=== PATIENT | female | born 1990 | race Caucasian/White ===

== ENCOUNTER → 2024-08-13 | Outpatient (CLI) | payer OTHER, MEDICAID, SELFPAY ==
[2024-08-13 11:51] LABS: Glucose 1/2 Hour 109 mg/dL (110-170)
[2024-08-13 11:51] LABS: Glucose, Fasting 85 mg/dL (74-106)
[2024-08-13 12:13] LABS: Glucose 1 Hour 112 mg/dL (120-170)
[2024-08-13 13:39] LABS: Glucose 2 Hour 101 mg/dL (70-120)
[2024-08-13 14:57] LABS: Glucose 3 Hour 60 mg/dL (70-120)
[2024-08-13 16:47] LABS: Glucose 4 Hour 71 mg/dL (70-120)
[2024-08-16 06:56] LABS: C-Peptide* 1.81 ng/mL (0.80-3.85); Insulin* 9.4 uIU/mL (< OR = 18.4)
== END | disposition home or self-care (01) ==
PROVIDERS: PCP Registered Nurse; Referring Provider Registered Nurse; Visit Provider Registered Nurse
DX: E16.2 Hypoglycemia, unspecified (principal)
CPT/HCPCS: 36415; 82951; 82952; 83525; 84681

== ENCOUNTER → 2024-11-01 | Outpatient (CLI) | payer OTHER, MEDICAID, SELFPAY ==
[2024-11-01 10:52] LABS: Free T4 (Free Thyroxine) 1.17 ng/dL (0.89-1.76); Thyroid Stimulating Hormone 1.34 uIU/mL (0.55-4.78)
== END | disposition home or self-care (01) ==
LOC: COPL 09:15
PROVIDERS: PCP Registered Nurse; Referring Provider Registered Nurse; Visit Provider Registered Nurse
DX: E03.9 Hypothyroidism, unspecified (principal)
CPT/HCPCS: 36415; 84439; 84443

== ENCOUNTER → 2025-01-01 | Outpatient (CLI) | payer OTHER, MEDICAID, SELFPAY ==
--- NOTE | 2025-01-01 12:00 | XR_ITS ---
Examination: CT brain head without contrast. 2-D sagittal coronal reconstructions Date and time of exam:January 01, 2025 1143 hours INDICATIONS: Patient fell 10 days ago with injury to the head, persistent head pain CTDI: vol (mGy):51.7 DLP: (mGycm): 1069 Technique: Multiple CT axial sections of the brain have been obtained, 5 mm slice thickness. Contrast has not been administered. 2-D sagittal, coronal reconstructions have been obtained Low dose protocols were performed. One or more of the following dose reduction techniques were used; automated exposure control, adjustment of the mA and/or KV according to patient size, use of iterative reconstruction technique. Findings: No significant ventricular enlargement. Intra-axial or extra-axial hemorrhage density is not seen. No mass effect or midline shift Basal cisterns are not remarkable. Fourth ventricle is midline. Cranial vault intact. Impression: Negative for acute hemorrhage, mass effect or midline shift Advise clinical correlation follow-up accordingly
== END | disposition home or self-care (01) ==
PROVIDERS: Referring Provider Registered Nurse; Visit Provider Registered Nurse
DX: R51.9 Headache, unspecified (principal)
CPT/HCPCS: 70450

== ENCOUNTER → 2025-01-02 | Outpatient (CLI) | payer OTHER, MEDICAID, SELFPAY ==
[2025-01-02 17:13] LABS: Hepatitis B Surface Antigen Non Reactive (Non React)
[2025-01-02 17:16] LABS: Syphilis Nonreactive (Nonreactive)
[2025-01-03 08:37] LABS: BVAG Candida Negative (Negative); Bacterial Vaginosis Markers Negative (Negative); Candida glabrata Negative (Negative); Candida krusei PCR Negative (Negative); Trichomonas Negative (Negative)
== END | disposition home or self-care (01) ==
LOC: SLDO 14:46
PROVIDERS: Referring Provider Physician Assistant Medical; Visit Provider Physician Assistant Medical
DX: R32 Unspecified urinary incontinence (principal); B37.89 Other sites of candidiasis; N76.0 Acute vaginitis; A59.01 Trichomonal vulvovaginitis; Z11.3 Encounter for screening for infections with a predominantly sexual mode of transmission
CPT/HCPCS: 36415; 81514; 86780; 87086; 87340; 87389; 87522

== ENCOUNTER → 2025-01-24 | Outpatient (CLI) | payer OTHER, MEDICAID, SELFPAY | END | disposition home or self-care (01) | PROVIDERS: Referring Provider Physician Assistant Medical; Visit Provider Physician Assistant Medical | DX: R32 Unspecified urinary incontinence (principal) | CPT/HCPCS: 87086 ==

== ENCOUNTER → 2025-04-10 | Outpatient (CLI) | payer OTHER, MEDICAID, SELFPAY ==
[2025-04-10 15:46] LABS: Collection Type, Urine Clean Catch
[2025-04-10 16:32] LABS: Basophils # (Auto) 0.0 Thou/mm3 (0.0-0.2); Basophils % (Auto) 1 % (0-2.5); Eosinophils # (Auto) 0.0 Thou/mm3 (0.0-0.5); Eosinophils % (Auto) 1 % (0-10); Hematocrit 40.8 % (36.0-46.0); Hemoglobin 13.6 g/dL (12.0-16.0); Immature Granulocytes Auto 0.01 Thou/mm3 (0.00-0.00); Lymphocytes # (Auto) 1.5 Thou/mm3 (1.0-4.8); Lymphocytes % (Auto) 30 % (10-50); Mean Corpuscular HGB Conc 33.3 g/dl (31.0-37.0); Mean Corpuscular Hemoglobin 30.2 pg (25.0-35.0); Mean Corpuscular Volume 91 fL (80-100); Monocytes # (Auto) 0.5 Thou/mm3 (0.0-0.8); Monocytes % (Auto) 10 % (0-12); Neutrophils # (Auto) 3.0 Thou/mm3 (1.8-7.7); Neutrophils % (Auto) 59 % (37-80); Nucleated Red Blood Cell # 0.00 Thou/mm3 (0.00-0.00); Nucleated Red Blood Cell % 0 /100 WBC (0); Platelet Count 322 Thou/mm3 (140-440); RDW Standard Deviation 46.0 fL (36.4-46.3); Red Blood Count 4.50 Miln/mm3 (4.00-5.20); White Blood Count 5.1 Thou/mm3 (3.6-11.0)
[2025-04-10 16:39] LABS: HCG Titer if Positive Negative
[2025-04-10 16:42] LABS: Glucose Estimated Average 94 mg/dL (80-131); Hemoglobin A1C 4.9 % Hgb (4.8-6.0)
[2025-04-10 16:50] LABS: Vitamin B12 707 pg/mL (211-911); Vitamin D 25 Hydroxy Total 30.9 ng/mL (7.3-40.2)
[2025-04-10 16:51] LABS: Alanine Aminotransferase 23 U/L (10-49); Albumin, Serum 4.4 gm/dL (3.5-5.0); Albumin/Globulin Ratio 1.8 (1.2-2.2); Alkaline Phosphatase 73 U/L (46-116); Anion Gap 10 (7-16); Aspartate Amino Transferase 24 U/L (0-34); BUN/Creatinine Ratio 8 Ratio (12-20); Bilirubin,Total 0.5 mg/dL (0.3-1.2); Blood Urea Nitrogen 8 mg/dL (9-23); Calcium 9.2 mg/dL (8.3-10.6); Calcium (Corrected) 9.2 mg/dL (8.5-10.1); Carbon Dioxide 27.5 mMol/L (20.0-31.0); Cardiac Risk Estimate 4.3 RATIO (3.7-5.6); Chloride 106 mMol/L (98-107); Cholesterol 179 mg/dL (132-200); Creatinine (Component) 1.0 mg/dL (0.6-1.3); Globulin 2.5 gm/dL (2.3-3.5); Glucose 85 mg/dL (74-106); HDL Cholesterol 42 mg/dL (40-60); LDL Cholesterol,Calculated 109 mg/dL (0-130); Osmolality,Calculated 282 (275-295); Potassium 3.8 mMol/L (3.4-5.1); Sodium 143 mMol/L (136-145); Thyroid Stimulating Hormone 0.59 uIU/mL (0.55-4.78); Total Protein 6.9 gm/dL (5.7-8.2); Triglycerides 138 mg/dL (30-150); eGFR > 60 See Note
[2025-04-10 17:24] LABS: Bacteria,Urine Rare; Bilirubin,Urine Negative (Negative); Blood,Urine Negative (Negative); Clarity,Urine Clear (Clear/Hazy); Color,Urine Yellow (Lt Yel-Yel); Culture Indicated,Urine Not Indicated; Glucose, Urine Negative (Negative); Ketones,Urine Negative (Negative); Leukocyte Esterase,Urine Positive (Negative); Nitrite,Urine Negative (Negative); PH,Urine 6.0 (5.0-7.0); Protein,Urine Trace (Neg - Trace); RBC,Urine 2 /hpf (0-3); Specific Gravity,Urine 1.035 (1.001-1.035); Squamous Epithelial Cell,Urine 3 /hpf (0-5); Urobilinogen,Urine Negative mg/dL (0.0-1.0); WBC,Urine 3 /hpf (0-5)
== END | disposition home or self-care (01) ==
LOC: COPL 15:02
PROVIDERS: PCP Family Medicine; Referring Provider Family Medicine; Visit Provider Family Medicine
DX: N91.2 Amenorrhea, unspecified (principal); R53.82 Chronic fatigue, unspecified; R79.89 Other specified abnormal findings of blood chemistry
CPT/HCPCS: 36415; 80053; 80061; 81001; 82306; 82607; 83036; 84443; 84703; 85025

== ENCOUNTER → 2025-04-16 | Outpatient (CLI) | payer OTHER, MEDICAID, SELFPAY ==
[2025-04-16 14:47] LABS: Basophils # (Auto) 0.0 Thou/mm3 (0.0-0.2); Basophils % (Auto) 1 % (0-2.5); Eosinophils # (Auto) 0.0 Thou/mm3 (0.0-0.5); Eosinophils % (Auto) 0 % (0-10); Hematocrit 41.6 % (36.0-46.0); Hemoglobin 14.1 g/dL (12.0-16.0); Immature Granulocytes Auto 0.01 Thou/mm3 (0.00-0.00); Lymphocytes # (Auto) 1.6 Thou/mm3 (1.0-4.8); Lymphocytes % (Auto) 24 % (10-50); Mean Corpuscular HGB Conc 33.9 g/dl (31.0-37.0); Mean Corpuscular Hemoglobin 30.7 pg (25.0-35.0); Mean Corpuscular Volume 91 fL (80-100); Monocytes # (Auto) 0.5 Thou/mm3 (0.0-0.8); Monocytes % (Auto) 7 % (0-12); Neutrophils # (Auto) 4.5 Thou/mm3 (1.8-7.7); Neutrophils % (Auto) 68 % (37-80); Nucleated Red Blood Cell # 0.00 Thou/mm3 (0.00-0.00); Nucleated Red Blood Cell % 0 /100 WBC (0); Platelet Count 330 Thou/mm3 (140-440); RDW Standard Deviation 45.6 fL (36.4-46.3); Red Blood Count 4.59 Miln/mm3 (4.00-5.20); White Blood Count 6.7 Thou/mm3 (3.6-11.0)
[2025-04-16 14:58] LABS: Glucose Estimated Average 91 mg/dL (80-131); Hemoglobin A1C 4.8 % Hgb (4.8-6.0)
[2025-04-16 15:02] LABS: Follicle Stimulating Hormone 5.59 mIU/mL (See Note)
[2025-04-16 15:05] LABS: Alanine Aminotransferase 19 U/L (10-49); Albumin, Serum 4.5 gm/dL (3.5-5.0); Albumin/Globulin Ratio 1.8 (1.2-2.2); Alkaline Phosphatase 76 U/L (46-116); Anion Gap 10 (7-16); Aspartate Amino Transferase 20 U/L (0-34); BUN/Creatinine Ratio 11 Ratio (12-20); Beta HCG,Quantitative < 1 mIU/mL (<5.0); Bilirubin,Total 0.8 mg/dL (0.3-1.2); Blood Urea Nitrogen 10 mg/dL (9-23); Calcium 9.2 mg/dL (8.3-10.6); Calcium (Corrected) 9.2 mg/dL (8.5-10.1); Carbon Dioxide 24.8 mMol/L (20.0-31.0); Chloride 106 mMol/L (98-107); Creatinine (Component) 0.9 mg/dL (0.6-1.3); Free T4 (Free Thyroxine) 1.43 ng/dL (0.89-1.76); Globulin 2.5 gm/dL (2.3-3.5); Glucose 79 mg/dL (74-106); Osmolality,Calculated 279 (275-295); Potassium 3.4 mMol/L (3.4-5.1); Sodium 141 mMol/L (136-145); Thyroid Stimulating Hormone 1.33 uIU/mL (0.55-4.78); Total Protein 7.0 gm/dL (5.7-8.2); eGFR > 60 See Note
[2025-04-17 10:39] LABS: BVAG Candida Negative (Negative); Bacterial Vaginosis Markers Negative (Negative); Candida glabrata Negative (Negative); Candida krusei PCR Negative (Negative); Trichomonas Negative (Negative)
[2025-04-30 06:26] LABS: DHEA Sulfate* 163 mcg/dL (23-266); Estrogen, Total, Serum* 1004 pg/mL; Luteinizing Hormone* 5.1 mIU/mL; Progesterone,LC/MS* 0.2 ng/mL; Prolactin* 8.1 ng/mL; Testosterone, Free,Dialysis 1.5 pg/mL (0.1-6.4); Testosterone, Total, Dialysis 26 ng/dL (2-45)
== END | disposition home or self-care (01) ==
PROVIDERS: PCP Registered Nurse; Referring Provider Specialist; Visit Provider Specialist
DX: N93.9 Abnormal uterine and vaginal bleeding, unspecified (principal); B37.89 Other sites of candidiasis; N76.0 Acute vaginitis; A59.01 Trichomonal vulvovaginitis
CPT/HCPCS: 36415; 80053; 81514; 82627; 82672; 83001; 83002; 83036; 84144; 84146; 84402; 84403; 84439; 84443; 84702; 85025

== ENCOUNTER 2025-04-26 20:54 | Emergency (ER) | payer OTHER, MEDICAID, SELFPAY ==
[2025-04-26 20:54] VITALS: BMI 23.9
[2025-04-26 21:54] VITALS: BP 127/85; PULSE 96; RESP 16; TEMP 36.7; O2SAT 99
--- NOTE | 2025-04-26 23:42 | XR_ITS ---
Examination: CT abdomen with intravenous contrast CT pelvis with intravenous contrast 2-D coronal reconstructions 2-D sagittal reconstructions Date and time of exam:April 27, 2025, 0116 hours, comparison July 06, 2016. INDICATIONS: Right lower abdominal pain beginning 4 days ago CTDI: vol (mGy) 6.57 DLP: (mGycm) 367 Technique: Multiple axial sections of the abdomen and pelvis have been obtained. 64 slice high-resolution scanner used. 3 mm axial sections have been obtained, post intravenous injection of 60 cc Isovue 370 2-D sagittal, coronal reconstructions obtained. Low dose protocols were performed. One or more of the following dose reduction techniques were used; automated exposure control, adjustment of the mA and/or KV according to patient size, use of iterative reconstruction technique. Findings: No focal liver or splenic lesions No gallstones No pancreatic mass. No renal or ureteral calculi, no hydronephrosis Aorta normal size No bowel obstruction Normal appendix, retrocecal No diverticulitis Anteverted uterus no pelvic mass Bladder intact, osseous structures intact mild disc narrowing L4-L5 IMPRESSION: Normal appendix No acute process in the abdomen or pelvis
--- NOTE | 2025-04-26 23:43 | PD.EDRME ---
Rapid Medical Screening Exam RME Arrival date/time: 04/26/25 20:54 35F with history of hypothyroidism presents to ED with 4 days of worsening RLQ pain and N/V. Patient is currently on her period. Chief Complaint: Abdominal Pain Vital signs: Vital Signs Temperature 98.1 F 04/26/25 21:54 Pulse Rate 96 04/26/25 21:54 Respiratory Rate 16 04/26/25 21:54 Blood Pressure 127/85 H 04/26/25 21:54 Pulse Oximetry (%) 99 04/26/25 21:54 Oxygen Delivery Method Room Air 04/26/25 21:54
--- NOTE | 2025-04-27 | XR_ITS ---
Examination: Pelvic ultrasound, transabdominal, complete Technique: Transabdominal ultrasound of the pelvis performed using grayscale imaging Date and time of exam: April 27, 2025, 0040 hours INDICATIONS: Right lower abdominal pelvic pain with nausea beginning 4 days ago. FINDINGS: Uterus 6.9 x 2.8 x 4.7 cm, endometrial stripe 0.3 cm No uterine mass or intrauterine gestation. Ovaries obscured by bowel gas IMPRESSION: No uterine mass or intrauterine gestation
[2025-04-27 01:00] LABS: Basophils # (Auto) 0.0 Thou/mm3 (0.0-0.2); Basophils % (Auto) 0 % (0-2.5); Eosinophils # (Auto) 0.0 Thou/mm3 (0.0-0.5); Eosinophils % (Auto) 0 % (0-10); Hematocrit 43.9 % (36.0-46.0); Hemoglobin 14.6 g/dL (12.0-16.0); Immature Granulocytes Auto 0.01 Thou/mm3 (0.00-0.00); Lymphocytes # (Auto) 2.4 Thou/mm3 (1.0-4.8); Lymphocytes % (Auto) 32 % (10-50); Mean Corpuscular HGB Conc 33.3 g/dl (31.0-37.0); Mean Corpuscular Hemoglobin 30.4 pg (25.0-35.0); Mean Corpuscular Volume 91 fL (80-100); Monocytes # (Auto) 0.5 Thou/mm3 (0.0-0.8); Monocytes % (Auto) 6 % (0-12); Neutrophils # (Auto) 4.7 Thou/mm3 (1.8-7.7); Neutrophils % (Auto) 61 % (37-80); Nucleated Red Blood Cell # 0.00 Thou/mm3 (0.00-0.00); Nucleated Red Blood Cell % 0 /100 WBC (0); Platelet Count 343 Thou/mm3 (140-440); RDW Standard Deviation 45.8 fL (36.4-46.3); Red Blood Count 4.81 Miln/mm3 (4.00-5.20); White Blood Count 7.7 Thou/mm3 (3.6-11.0)
[2025-04-27 01:22] LABS: Alanine Aminotransferase 16 U/L (10-49); Albumin, Serum 4.9 gm/dL (3.5-5.0); Albumin/Globulin Ratio 1.6 (1.2-2.2); Alkaline Phosphatase 70 U/L (46-116); Anion Gap 14 (7-16); Aspartate Amino Transferase 14 U/L (0-34); BUN/Creatinine Ratio 7 Ratio (12-20); Bilirubin,Total 0.6 mg/dL (0.3-1.2); Blood Urea Nitrogen 6 mg/dL (9-23); Calcium 9.8 mg/dL (8.3-10.6); Calcium (Corrected) 9.8 mg/dL (8.5-10.1); Carbon Dioxide 24.1 mMol/L (20.0-31.0); Chloride 105 mMol/L (98-107); Creatinine (Component) 0.9 mg/dL (0.6-1.3); Estimated Creatinine Clearance 84.8 mL/min (>60); Globulin 3.1 gm/dL (2.3-3.5); Glucose 78 mg/dL (74-106); Lipase 34 U/L (12-53); Osmolality,Calculated 281 (275-295); Potassium 3.3 mMol/L (3.4-5.1); Sodium 143 mMol/L (136-145); Total Protein 8.0 gm/dL (5.7-8.2); eGFR > 60 See Note
--- NOTE | 2025-04-27 02:14 | PRELIM_ITS ---
Pelvic ultrasound (transabdominal). April 27, 2025 at 0040 hours Clinical history: Right lower quadrant/pelvic pain. LMP: 04/25/2025. Technique: Real-time, grayscale, transabdominal pelvic ultrasound was performed using Duplex scanning including arterial inflow, venous outflow, color and spectral Doppler. Comparison: No prior study is available for comparison. Findings: The uterus measures 6.9 x 2.8 x 4.7 cm and is unremarkable. The endometrium is unremarkable and measures 0.3 cm. The ovaries are obscured by bowel gas and are not evaluated on this examination. There is no gross adnexal mass. There is no free fluid on the submitted images. Impression: Grossly unremarkable uterus. Nonvisualized ovaries (obscured by bowel gas). Other findings as described above. Report Electronically Signed By: Roxi Barfield 04/27/2025 2:13:44 AM [EST]
--- NOTE | 2025-04-27 02:14 | PRELIM_ITS ---
CT scan of the abdomen and pelvis with intravenous contrast (axial sections with sagittal, coronal and 3D reformats) April 27, 2025 0116 hours Clinical History: Right lower quadrant pain Comparison: None. Findings: The lung bases are clear. Fatty infiltration of the liver is noted. No evidence of calcified gallstones. There is right renal parenchymal scarring. The pancreas, spleen, left kidney and adrenals are unremarkable. No evidence of bowel obstruction. The appendix is within normal limits (images [id number]). There is no mesenteric or retroperitoneal adenopathy. The urinary bladder is unremarkable. The uterus is unremarkable. There is no free fluid, free air or abscess. The osseous structures are unremarkable. Impression: No evidence of appendicitis or other acute intra-abdominal/pelvic pathology. Other findings as described above. Report Electronically Signed By: Roxi Barfield 04/27/2025 2:13:23 AM [EST]
[2025-04-27 02:45] VITALS: BP 122/92; PULSE 80; RESP 18; TEMP 36.6; O2SAT 100
--- NOTE | 2025-04-27 03:15 | PD.EDABDPN ---
ED Abdominal Pain RME/HPI General Chief Complaint: Abdominal Pain Stated complaint: RIGHT LOWER ABDOMINAL PAIN Arrival date/time: 04/26/25 20:54 RME / HPI RME / HPI narrative: 04/26/25 20:54 35F with history of hypothyroidism presents to ED with 4 days of worsening RLQ pain and N/V. Patient is currently on her period. DR. VILLANUEVA MAIN ED EVALUATION: 35 yo female with Hx of presents to ED c/o RLQ abdominal pain, nausea, and vomiting x 4 days. Denies dysuria. No other concerns or complaints expressed at this time. Related Data Home Medications ?Medication ?Instructions ?Recorded ?Confirmed budesonide-formoterol HFA 160 2 puff inhalation BID 05/23/23 05/23/23 mcg-4.5 mcg/actuation aerosol inhaler (Symbicort) folic acid 1 mg tablet 1 mg PO DAILY 05/23/23 05/23/23 ibuprofen 800 mg tablet 800 mg PO Q8HR PRN Pain 05/23/23 05/23/23 levothyroxine 25 mcg tablet 25 mcg PO DAILY 05/23/23 05/23/23 loratadine 10 mg tablet 10 mg PO DAILY 05/23/23 05/23/23 meloxicam 15 mg tablet 15 mg PO DAILY PRN Pain 05/23/23 05/23/23 omeprazole 20 mg capsule,delayed 20 mg PO DAILY 05/23/23 05/23/23 release phentermine 15 mg capsule 37.5 mg PO DAILY 05/23/23 05/23/23 Previous Rx's ?Medication ?Instructions ?Recorded albuterol sulfate 90 mcg/actuation 2 puff inhalation QID #18 grams 03/07/21 aerosol inhaler Allergies Allergy/AdvReac Type Severity Reaction Status Date / Time adhesive tape Allergy Verified 03/06/21 23:25 Review of Systems Review of Systems Systems Reviewed: All systems reviewed, normal except as documented Past Medical History Past Medical History RESPIRATORY: Positive Respiratory Disorders and Asthma GASTROINTESTINAL: Positive Gastrointestinal Disorders and Gastroesophageal Reflux Disease GENITOURINARY: Positive Genitourinary Disorders (RIGHT KIDNEY CYST) MUSCULOSKELETAL: Positive Musculoskeletal Disorders, Arthritis (RIGHT KNEE), Scoliosis and Carpal Tunnel Syndrome (BILATERAL) ENDOCRINE: Positive Hypothyroidism PSYCHO/SOCIAL: Positive Depression and Anxiety OTHER HISTORY: Positive Chicken Pox ED Exam Narrative Physical exam: Generally patient is alert and oriented x 3 in no obvious distress, heart is regular rate and rhythm, lungs clear to auscultation equal bilaterally, abdomen soft bowel sounds present nondistended right lower quadrant abdominal tenderness without rebound. Musculoskeletal exam showed no costovertebral angle tenderness. Skin is warm pale and dry. Neurologic exam no focal motor or sensory deficits cranial nerves II through XII grossly intact Course Quality Measures none Orders Category Date Time Status CT Screening NOW Care 04/26/25 23:43 Active Insert IV NOW Care 04/26/25 23:[address] abdomen pelvis w con Stat Exams 04/26/25 23:42 Taken US pelvic complete Stat Exams 04/27/25 00:00 Taken CBC Stat Lab 04/26/25 23:42 Completed CMP [Comprehensive Metabolic Panel] Stat Lab 04/26/25 23:42 Completed HCG Qualitative,Urine Stat Lab 04/26/25 23:43 Ordered Lipase Stat Lab 04/26/25 23:42 Completed Urinalysis, C/S if Indicated Stat Lab 04/26/25 23:43 Ordered Vital Signs Vital signs: Vital Signs Temperature 98.1 F 04/26/25 21:54 Pulse Rate 96 04/26/25 21:54 Respiratory Rate 16 04/26/25 21:54 Blood Pressure 127/85 H 04/26/25 21:54 Pulse Oximetry (%) 99 04/26/25 21:54 Oxygen Delivery Method Room Air 04/26/25 21:54 Abdominal Pain MDM MDM Narrative MDM Narrative:: Scribe Attestation: I, Ct Todd am scribing for and in the presence of Dr. Villanueva. Provider Notation: Although this document has been carefully reviewed, there may still be some phonetic and other typographical errors. These errors are purely grammatical due to imperfections in the software program and should not be construed in any way to? compromise the substance of the patient's medical care during this visit. I interpreted all labs. I reviewed all radiographic studies. CT scan done the abdomen and pelvis with IV contrast showed no evidence of acute disease process. Pelvic ultrasound was unremarkable. There was no evidence for appendicitis on the CT scan. There is no fever. No leukocytosis. Patient denies urinary complaints such as dysuria hematuria urgency or frequency. Patient will be discharged in stable condition to take Tylenol and ibuprofen for pain. Follow-up with her doctor. Return to ER as needed or if condition worsens. Patient data External records reviewed:: [facility] previous records (Reviewed prior ED records from 12/31/21. Patient was seen for Acute hip pain.) Clinical information provided by:: patient Social determinants that could affect healthcare access:: none Patient has the following chronic illnesses:: Asthma, Gastroesophageal Reflux Disease, Genitourinary Disorders (RIGHT KIDNEY CYST), Arthritis, Scoliosis,Carpal Tunnel Syndrome, Hypothyroidism, Depression and Anxiety How is presenting disease/condition affected by chronic disease/condition?: exacerbated by Evaluation data The following diagnostics were reviewed and interpreted by me:: other (specify) Lab and/or radiology exams considered but not ordered:: None Interpretation Summary: RADIOLOGY Pelvic US: Findings: The uterus measures 6.9 x 2.8 x 4.7 cm and is unremarkable. The endometrium is unremarkable and measures 0.3 cm. The ovaries are obscured by bowel gas and are not evaluated on this examination. There is no gross adnexal mass. There is no free fluid on the submitted images. Impression: Grossly unremarkable uterus. Nonvisualized ovaries (obscured by bowel gas). Other findings as described above. Abdomen/Pelvis CT: Findings: The uterus measures 6.9 x 2.8 x 4.7 cm and is unremarkable. The endometrium is unremarkable and measures 0.3 cm. The ovaries are obscured by bowel gas and are not evaluated on this examination. There is no gross adnexal mass. There is no free fluid on the submitted images. Impression: Grossly unremarkable uterus. Nonvisualized ovaries (obscured by bowel gas). Other findings as described above. Medications / Prescriptions Medications or Prescriptions considered but not ordered:: None Medication administrations:: See above. Consultations Consultation(s) initiated? (list below): No Diagnosis Differential diagnosis abdominal pain: abdominal pain, acute appendicitis, calculus of kidney, constipation, diverticulitis, endometriosis, gastroenteritis, pancreatitis and small bowel obstruction Most likely diagnosis given after review of the tests above:: None Admission Indicated Admission indicated?: not indicated Explain why admission is indicated or not indicated:: Patient does not meet admission criteria. Admission Request Was there a request for admission?: No Disposition Plan Disposition Plan: Discharge Discharge Attestation Discharge Attestation: The patient and all family members were given an opportunity to ask questions and understood the discharge instructions. Discharge instructions specifically effects, indications for sooner follow up or return to the emergency department, and the expected course of current diagnosis. Patient condition: Stable Discharge Plan Plan Patient Disposition: HOME (Self Care) Prescriptions/Referrals Prescriptions/Med Rec: No Action albuterol sulfate 90 mcg/actuation HFA aerosol inhaler 2 puff inhalation QID Qty: 18 0RF ibuprofen 800 mg tablet 800 mg PO Q8HR PRN (Reason: Pain) Patient Comments: TAKE 1 TABLET BY MOUTH EVERY 8 HOURS NEEDED WITH FOOD OR MILK FOR 30 DAYS meloxicam 15 mg tablet 15 mg PO DAILY PRN (Reason: Pain) Patient Comments: TAKE 1 TABLET BY MOUTH ONCE DAILY phentermine 15 mg capsule 37.5 mg PO DAILY levothyroxine 25 mcg tablet 25 mcg PO DAILY Patient Comments: TAKE 1 TABLET BY MOUTH ONCE DAILY omeprazole 20 mg capsule,delayed release(DR/EC) 20 mg PO DAILY Patient Comments: TAKE 1 CAPSULE BY MOUTH ONCE DAILY 30 MINUTES BEFORE BREAKFAST folic acid 1 mg tablet 1 mg PO DAILY Patient Comments: TAKE 1 TABLET BY MOUTH ONCE DAILY loratadine 10 mg Tablet 10 mg PO DAILY budesonide-formoterol [Symbicort] 160-4.5 mcg/actuation Hfa Aerosol Inhaler 2 puff INHALATION BID Referrals: No Primary/Family,Physician [Primary Care Provider] - In 1 week Problem List Clinical Impression: Abdominal pain Patient/Caregiver Discharge Instructions Education Materials: Abdominal Pain Additional Instructions: You may take Tylenol and/or ibuprofen as needed for pain. Follow-up with your doctor for further treatment and evaluation. Print Language: [place] Stand Alone Forms: Apiary Info., Patient Portal Info Letter
[2025-04-27 03:43] VITALS: BP 126/72; PULSE 80; RESP 18; TEMP 36.7; O2SAT 98
== END 2025-04-27 03:44 | disposition home or self-care (01) ==
PROVIDERS: Physician Assistant; Emergency Provider Emergency Medicine
DX: R10.31 Right lower quadrant pain (principal); J45.909 Unspecified asthma, uncomplicated; K21.9 Gastro-esophageal reflux disease without esophagitis; M19.90 Unspecified osteoarthritis, unspecified site; E03.9 Hypothyroidism, unspecified; F32.A Depression, unspecified; F41.9 Anxiety disorder, unspecified
CPT/HCPCS: 36415; 74177; 76856; 80053; 81001; 81025; 83690; 85025; 99283; A4649; Q9967